=== PATIENT | male | born 1985 | race Caucasian/White ===

== ENCOUNTER 2017-09-08 17:18 | Emergency (ER) | payer OTHER ==
[~2017-09-08 17:18] MED LIST: IOHEXOL 350 MG/ML 10 ML VIAL (for RAD DIAG) IVCONTRAST ONE
[2017-09-08 17:19] VITALS: BP 136/81; PULSE 81; RESP 16; TEMP 97.4; O2SAT 99
[2017-09-08 18:48] LABS: AUTOMATED NEUTROPHIL # 6.5 TH/MM3 (1.8-7.7); BASOPHIL % 0.4 % (0.0-2.0); EOSINOPHIL # 0.6 TH/MM3 (0-0.4); EOSINOPHIL % 5.8 % (0.0-4.0); HEMATOCRIT 43.7 % (35.0-46.0); HEMOGLOBIN 14.9 GM/DL (11.6-15.3); LYMPH % 22.1 % (9.0-44.0); LYMPHOCYTE # 2.3 TH/MM3 (1.0-4.8); MEAN CELL VOLUME 92.9 FL (80.0-100.0); MEAN CORPUSCULAR HEMOGLOBIN 31.6 PG (27.0-34.0); MEAN PLATELET VOLUME 8.1 FL (7.0-11.0); MONO % 8.7 % (0.0-8.0); MONOCYTE # 0.9 TH/MM3 (0-0.9); PLATELET COUNT 238 TH/MM3 (150-450); RED BLOOD COUNT 4.71 MIL/MM3 (4.00-5.30); RED CELL DISTRIBUTION WIDTH 12.8 % (11.6-17.2); WHITE BLOOD COUNT 10.2 TH/MM3 (4.0-11.0)
[2017-09-08 19:18] LABS: ALBUMIN 4.1 GM/DL (3.4-5.0); AST (GOT) 15 U/L (15-37); BLOOD UREA NITROGEN 15 MG/DL (7-18); CHLORIDE 104 MEQ/L (98-107); GLOMERULAR FILTRATION RATE 44 ML/MIN (>89); GLUCOSE,RANDOM 88 MG/DL (74-106); LIPASE 96 U/L (73-393); SODIUM (NA) 137 MEQ/L (136-145)
[2017-09-08 19:20] LABS: ALT (GPT) 28 U/L (10-53)
[2017-09-08 19:22] LABS: ALKALINE PHOSPHATASE 88 U/L (45-117); TOTAL BILIRUBIN ADULT 0.3 MG/DL (0.2-1.0); TOTAL PROTEIN 8.2 GM/DL (6.4-8.2)
--- NOTE | 2017-09-08 23:49 | PD ---
HPI Chief Complaint: Abnormal Results Time Seen by Provider: 23:46 Travel History International Travel<30 days: No Contact w/Intl Traveler<30days: No Traveled to known affect area: No History of Present Illness HPI The patient is 31 year old male who presents to the [facility] emergency department with a history of abdominal pain that first began a month ago. The patient reports that the pain is present in the left upper quadrant of the abdomen and radiates around to the left flank. The pain is a constant pressure sensation with intermittent intense pain that is a cramping sensation. He has had n/v daily that typically occurs 4x per day. He has had diarrhea that comes and goes. He has diarrhea 3 days out of the week approximately 15 x per day. He had a fever of 101 since onset of the pain, last 2 and 1/2 to 3 weeks ago. He went to the [place] ER 2 weeks ago for evaluation. He reports that he had laboratory studies and a urinalysis done, however no acute abnormality was noted. He followed up with a welding machine tender office yesterday. He had blood work done and today was called by the office stating that the laboratory studies revealed that he could have pancreatitis, therefore he should go to the emergency department for additional laboratory studies and a CT scan of the abdomen and pelvis. He reports that no CT scan of the abdomen and pelvis was done at the [place] emergency department. On review of systems otherwise, the patient also reports that he has had increased shortness of breath with more frequent use of his rescue inhaler 2 weeks ago. The patient denies any worsening cough or congestion, neck pain, chest pain, urinary symptoms, or neurologic symptoms. PCP: Kendal Ogden. [facility]LY [facility] Past Medical History Narrative Medical The patient's past medical history is significant for asthma, headaches. Past Surgical History Narrative Surgical The patient's past surgical history is significant for appendectomy, cyst removal back of leg. Social History Alcohol Use: Yes (occasionally ) Tobacco Use: No Substance Use: No Allergies-Medications (Allergen,Severity, Reaction): Coded Allergies: shrimp (Verified Allergy, Unknown, 09/09/17) Reported Meds & Prescriptions Reported Meds & Active Scripts Active Protonix (Pantoprazole Sodium) 40 Mg Tab 40 Mg PO DAILY BC Powder- 1 every other day for years as needed for headaches, Ventolin PRN Review of Systems Except as stated in HPI: all other systems reviewed are Neg General / Constitutional: No: Fever Eyes: No: Visual changes HENT: Positive: Headaches, No: Congestion, Neck Stiffness, Neck Pain Cardiovascular: No: Chest Pain or Discomfort, Dyspnea on exertion Respiratory: Positive: Shortness of Breath, Wheezing, No: Cough Gastrointestinal: Positive: Nausea, Vomiting, Diarrhea, Abdominal Pain Genitourinary: No: Dysuria Musculoskeletal: No: Pain Skin: No Rash Neurologic: No: Weakness, Focal Abnormalities, Change in Mentation, Slurred Speech, Sensory Disturbance Psychiatric: No: Depression Endocrine: No: Polydipsia Hematologic/Lymphatic: No: Easy Bruising Physical Exam Narrative General: The patient is a well-developed well-nourished male in no acute distress. Head and Neck exam: Head is normocephalic atraumatic. Eyes: EOMI, pupils are equal round and reactive to light. Nose: Midline septum with pink mucous membranes Mouth: Dentition unremarkable. Moist mucus membranes. Posterior oropharynx is not erythematous. No tonsillar hypertrophy. Uvula midline. Airway patent. Neck: No palpable lymphadenopathy. No nuchal rigidity. No thyromegaly. Cardiovascular: Regular rate and rhythm without murmurs, gallops, or rubs. No pulse deficit to the extremities. Lungs: Clear to auscultation bilaterally. No wheezes, rhonchi, or rales. Abdomen: Soft, without tenderness to palpation in all 4 quadrants of the abdomen. No guarding, rebound, or rigidity. Normal bowel sounds are audible. No tenderness on palpation of McBurney's point. Negative Escobedo's sign. The patient denies having any pain on palpation of this time, however he reports a sensation of aching in the left upper quadrant of the abdomen. Extremities: No clubbing, cyanosis, or edema. 2+ pulses in all 4 extremities. Back: No spinous process tenderness to palpation. No costovertebral angle tenderness to palpation. Neurologic Exam: Grossly nonfocal. Skin Exam: No rash noted. Intact skin that is warm and dry. Data Data Last Documented VS Vital Signs Date Time Temp Pulse Resp B/P (MAP) Pulse Ox O2 Delivery O2 Flow Rate FiO2 09/09/17 00:16 98.5 64 18 126/86 (99) 100 Room Air Orders Orders Complete Blood Count With Diff (09/08/17 17:54) Comprehensive Metabolic Panel (09/08/17 17:54) Lipase (09/08/17 17:54) Ct Abd/Pel W Iv Contrast(Rout) (09/09/17 00:23) Sodium Chlor 0.9% 1000 Ml Inj (Ns 1000 M (09/09/17 00:30) Ondansetron Inj (Zofran Inj) (09/09/17 00:30) Pantoprazole Inj (Protonix Inj) (09/09/17 01:00) Iohexol 350 Inj (Omnipaque 350 Inj) (09/08/17 01:10) Labs Laboratory Tests Test 09/08/17 18:39 White Blood Count 10.2 TH/MM3 Red Blood Count 4.71 MIL/MM3 Hemoglobin 14.9 GM/DL Hematocrit 43.7 % Mean Corpuscular Volume 92.9 FL Mean Corpuscular Hemoglobin 31.6 PG Mean Corpuscular Hemoglobin Concent 34.0 % Red Cell Distribution Width 12.8 % Platelet Count 238 TH/MM3 Mean Platelet Volume 8.1 FL Neutrophils (%) (Auto) 63.0 % Lymphocytes (%) (Auto) 22.1 % Monocytes (%) (Auto) 8.7 % Eosinophils (%) (Auto) 5.8 % Basophils (%) (Auto) 0.4 % Neutrophils # (Auto) 6.5 TH/MM3 Lymphocytes # (Auto) 2.3 TH/MM3 Monocytes # (Auto) 0.9 TH/MM3 Eosinophils # (Auto) 0.6 TH/MM3 Basophils # (Auto) 0.0 TH/MM3 CBC Comment DIFF FINAL Differential Comment Blood Urea Nitrogen 15 MG/DL Creatinine 1.40 MG/DL Random Glucose 88 MG/DL Total Protein 8.2 GM/DL Albumin 4.1 GM/DL Calcium Level 9.0 MG/DL Alkaline Phosphatase 88 U/L Aspartate Amino Transf (AST/SGOT) 15 U/L Alanine Aminotransferase (ALT/SGPT) 28 U/L Total Bilirubin 0.3 MG/DL Sodium Level 137 MEQ/L Potassium Level 3.7 MEQ/L Chloride Level 104 MEQ/L Carbon Dioxide Level 29.0 MEQ/L Anion Gap 4 MEQ/L Estimat Glomerular Filtration Rate 44 ML/MIN Lipase 96 U/L MDM Medical Decision Making Medical Screen Exam Complete: Yes Emergency Medical Condition: Yes Medical Record Reviewed: Yes Interpretation(s) Last Impressions Abdomen/Pelvis CT 09/09/17 0023 Signed Impressions: Service Date/Time: Saturday, September 09, 2017 00:52 - CONCLUSION: 1. No evidence of acute abdominal or pelvic process. No masses are identified. Hansel Clayton MD Differential Diagnosis Acute pancreatitis, versus peptic ulcer disease, versus gastritis, versus hemorrhagic esophagitis, versus gastroenteritis, versus food intolerance, versus colitis Narrative Course During the course of the patients emergency department visit, the patients history, examination, and differential diagnosis were reviewed with the patient. The patient was placed on a cardiac surgeon with oximetry and frequent blood pressure monitoring. The patient had IV access obtained and blood work sent for analysis. A CT scan of the abdomen and pelvis was ordered. The patient was initially provided normal saline 1 L IV fluid bolus, Zofran 4 mg IV, Protonix 40 mg IV. The patients laboratory studies were reviewed and remarkable for a white count of 10.2, hemoglobin 14.9, platelets 238 with 8.7 monocytes, CMP is remarkable for a creatinine 1.40, lipase 96. Radiology studies were reviewed and remarkable for a CT scan of the abdomen and pelvis that shows no acute evidence of abdominal or pelvic process, no masses are identified. The patient will be discharged home with a prescription for Protonix. The patient is instructed to follow-up with a welding machine tender for endoscopy and colonoscopy as previously recommended by his welding machine tender. The patient is resting comfortably and feels better, is alert and in no distress. The patients results and examination findings were discussed with the patient. The repeat examination is unremarkable and benign. The history, exam, diagnostic testing, and current condition do not suggest any significant pathology to warrant further testing, continued ED treatment, admission, or surgical evaluation at this point. The vital signs have been stable. The patient does not have uncontrollable pain, intractable vomiting, or other significant symptoms. The patient's condition is stable and appropriate for discharge. The patient will pursue further outpatient evaluation with a primary care physician or other designated or consulting physician as indicated in the discharge instructions. The patient expressed understanding and was agreeable with this plan. Diagnosis Primary Impression: Abdominal pain Qualified Codes: R10.12 - Left upper quadrant pain Additional Impression: Nausea, vomiting, and diarrhea Referrals: Megan Vaca MD 2 days Patient Instructions: Abdominal Pain (ED), General Instructions Additional Instructions: Stopped taking all anti-inflammatory pain medications such as BC powder, Aleve, ibuprofen. If needed for headache you could take Tylenol as needed is written on the package. Med/Other Pt SpecificInfo: Prescription(s) given Scripts Pantoprazole (Protonix) 40 Mg Tab 40 MG PO DAILY for Reflux, #30 TAB 0 Refills Prov: Missy Mantilla MD 09/09/17 Disposition: 01 DISCHARGE HOME Condition: Stable Missy Mantilla MD Sep 08, 2017 23:49
[2017-09-09 00:16] VITALS: BP 126/86; PULSE 64; RESP 18; TEMP 98.5; O2SAT 100
[2017-09-09] MEDS ORDERED: ONDANSETRON HCL 4 MG/2 ML VIAL IV ONE (00:30)
[2017-09-09] MEDS ORDERED: SODIUM CHLOR 0.9% 1000 ML INJ 1,000 ML IV ONE (00:30)
[2017-09-09] MEDS ORDERED: PROT40TA PO (00:49)
[2017-09-09] MEDS ORDERED: PANTOPRAZOLE SODIUM 40 MG VIAL IV PUSH ONE (01:00)
--- NOTE | 2017-09-09 01:27 | RADRPT ---
EXAM DATE/TIME: 09/09/2017 00:52 [facility] COMPARISON: No previous studies available for comparison. INDICATIONS : Left upper quadrant pain with nausea and vomiting. IV CONTRAST: 75 cc Omnipaque 350 (iohexol) IV ORAL CONTRAST: No oral contrast ingested. RADIATION DOSE: 6.64 CTDIvol (mGy) MEDICAL HISTORY : None SURGICAL HISTORY : Appendectomy. ENCOUNTER: Initial ACUITY: 1 week PAIN SCALE: 5/10 LOCATION: Left upper quadrant TECHNIQUE: Volumetric scanning of the abdomen and pelvis was performed. Using automated exposure control and ad justment of the mA and/or kV according to patient size, radiation dose was kept as low as reasonably achievable to obtain optimal diagnostic quality images. DICOM format image data is available electro nically for review and comparison. FINDINGS: LOWER LUNGS: The visualized lower lungs are clear. LIVER: Homogeneous density without lesion. There is no dilation of the biliary tree. No calcified gallston es. SPLEEN: Normal size without lesion. PANCREAS: Within normal limits. KIDNEYS: Normal in size and shape. There is no mass, stone or hydronephrosis. ADRENAL GLANDS: Within normal limits. VASCULAR: There is no aortic aneurysm. BOWEL/MESENTERY: The stomach, small bowel, and colon demonstrate no acute abnormality. There is no free intraperitone al air or fluid. ABDOMINAL WALL: Within normal limits. RETROPERITONEUM: There is no lymphadenopathy. BLADDER: No wall thickening or mass. REPRODUCTIVE: Within normal limits. INGUINAL: There is no lymphadenopathy or hernia. MUSCULOSKELETAL: Within normal limits for patient age. CONCLUSION: 1. No evidence of acute abdominal or pelvic process. No masses are identified. Hansel Clayton MD on September 09, 2017 at 1:23 Board Certified Radiologist. This report was verified electronically.
[2017-09-09 02:13] VITALS: BP 120/78
== END 2017-09-09 02:20 | disposition home or self-care (01) ==
LOC: NEPE 17:18 → EDSEX 17:18 → NEPE 09-09 02:20
DX: R10.12 Left upper quadrant pain (principal); R19.7 Diarrhea, unspecified; R11.2 Nausea with vomiting, unspecified; J45.909 Unspecified asthma, uncomplicated
CPT/HCPCS: 74177; 80053; 83690; 85025; 96374; 96375; 99285; C9113; J2405; J7030; Q9967